=== PATIENT | male | born 1980 | race Caucasian/White ===

== ENCOUNTER 2018-07-29 02:52 | Emergency (ER) | payer OTHER ==
[~2018-07-29] VITALS: Ht 175.3 cm; Wt 86.2 kg
[~2018-07-29 02:52] MED LIST: FLEXERIL PO; IBUPROFEN 600600 M1 PO; LIDOCAINE VISC100 ML MM; PAXIL 20 MG TAB20 MG PO; PROBIOTIC1 EAC2 PO; TRAMADOL 50 MG50 MG PO; UNICOMPLEX M TA1 TA1 PO; ZOFRAN ODT4 MG PO; ZPAK PO
[2018-07-29] MEDS ORDERED: NAPROSYN500 MG PO (03:11)
[2018-07-29] MEDS ORDERED: FLEXERIL PO (03:12)
[2018-07-29] MEDS ORDERED: ACETAMINOPHEN-1 EAC1 PO (03:13)
[2018-07-29 03:42] LABS: ABSOLUTE NEUTROPHILS 8.2 thou/uL (1.4-8.2); BASOPHILS 0.5 % (0.0-2.0); EOSINOPHILS 8.6 % (0.0-3.0); HEMOGLOBIN 14.6 gm/dL (14.0-18.0); LYMPHOCYTES 22.2 % (24.0-44.0); MCH 32.8 pg (26.0-34.0); MCHC 34.9 g/dL (28.0-37.0); MCV 94.1 fL (80.0-100.0); MONOCYTES 8.9 % (1.0-8.0); PLATELET COUNT 185 thou/uL (150-400); POLYS 59.8 % (36.0-66.0); RBC 4.46 mil/uL (4.50-6.00); RDW 12.4 % (10.5-14.5); WBC 13.6 thou/uL (4.0-11.0)
[2018-07-29 03:47] LABS: CALCIUM 9.2 mg/dL (8.5-10.1); CREATININE 1.2 mg/dL (0.7-1.3); POTASSIUM 4.1 mmol/L (3.5-5.1)
[2018-07-29 03:53] LABS: ALBUMIN 3.8 g/dL (3.4-5.0); TOTAL BILIRUBIN 0.3 mg/dL (<0.1-1.0); TOTAL PROTEIN 7.3 g/dL (6.4-8.2)
[2018-07-29] MEDS ORDERED: KEFLEX500 M1 PO (04:20)
[2018-07-29 04:30] VITALS: BP 149/98
== END 2018-07-29 04:45 | disposition home or self-care (01) ==
LOC: ER 02:52
PROVIDERS: Emergency Medicine
DX: T81.4XXA Infection following a procedure, initial encounter (principal); F17.210 Nicotine dependence, cigarettes, uncomplicated; I10 Essential (primary) hypertension; F32.9 Major depressive disorder, single episode, unspecified; F41.9 Anxiety disorder, unspecified; F20.9 Schizophrenia, unspecified; M41.9 Scoliosis, unspecified

== ENCOUNTER 2021-01-26 21:38 | Emergency (ER) | payer OTHER ==
[~2021-01-26] VITALS: Ht 182.9 cm; Wt 131.5 kg
[~2021-01-26 21:38] MED LIST changes: +ACETAMINOPHEN-1 EAC1 PO; +KEFLEX500 M1 PO; +NAPROSYN500 MG PO
[2021-01-26] MEDS ORDERED: ADVIL200 M1 PO (22:00)
[2021-01-26] MEDS ORDERED: MEDROLDOSEPACK PO (23:32)
[2021-01-26] MEDS ORDERED: ULTRAM 50MG TAB50 MG PO (23:32)
[2021-01-27 00:07] VITALS: BP 168/100
== END 2021-01-26 23:45 | disposition home or self-care (01) ==
LOC: ER 21:38
DX: S86.911A Strain of unspecified muscle(s) and tendon(s) at lower leg level, right leg, initial encounter (principal); I10 Essential (primary) hypertension; F17.210 Nicotine dependence, cigarettes, uncomplicated; Z79.1 Long term (current) use of non-steroidal anti-inflammatories (NSAID); X58.XXXA Exposure to other specified factors, initial encounter; Y93.89 Activity, other specified; Y92.89 Other specified places as the place of occurrence of the external cause; Y99.0 Civilian activity done for income or pay

== ENCOUNTER 2021-02-10 23:23 | Inpatient (IN) | payer OTHER ==
[~2021-02-10] VITALS: Ht 182.9 cm; Wt 135.6 kg
[~2021-02-10 23:23] MED LIST changes: +ADVIL200 M1 PO; +MEDROLDOSEPACK PO; +ULTRAM 50MG TAB50 MG PO
[2021-02-10 23:29] VITALS: BP 201/116
[2021-02-10] MEDS ORDERED: EXCEDRIN CAPLE1 EACH PO (23:34)
[2021-02-11 00:51] LABS: ABSOLUTE NEUTROPHILS 12.1 thou/uL (1.4-8.2); BASOPHILS 0.5 % (0.0-2.0); EOSINOPHILS 1.9 % (0.0-3.0); HEMATOCRIT 42.2 % (42.0-52.0); HEMOGLOBIN 14.8 gm/dL (14.0-18.0); LYMPHOCYTES 18.6 % (24.0-44.0); MCH 33.5 pg (26.0-34.0); MCV 95.7 fL (80.0-100.0); MONOCYTES 9.7 % (1.0-8.0); PLATELET COUNT 151 thou/uL (150-400); POLYS 69.3 % (36.0-66.0); RBC 4.41 mil/uL (4.50-6.00); WBC 17.4 thou/uL (4.0-11.0)
[2021-02-11 00:53] LABS: ANION GAP 14 mmol/L (7-16); BUN 18 mg/dL (7-18); CALCIUM 8.6 mg/dL (8.5-10.1); CHLORIDE 105 mmol/L (98-107); CO2 24 mmol/L (21-32); CREATININE 1.3 mg/dL (0.7-1.3); GLUCOSE 119 mg/dL (74-106); POTASSIUM 3.7 mmol/L (3.5-5.1); SODIUM 143 mmol/L (136-145)
[2021-02-11 01:03] LABS: ALBUMIN 3.6 g/dL (3.4-5.0); SGOT 21 U/L (15-37); SGPT 28 U/L (16-63); TOTAL BILIRUBIN 0.3 mg/dL (0.2-1.0); TOTAL PROTEIN 7.5 g/dL (6.4-8.2); TROPONIN-I <0.06 ng/mL (<0.06)
[2021-02-11 04:06] VITALS: BP 174/105
[2021-02-11 04:52] VITALS: BP 160/103
[2021-02-11 07:43] VITALS: BP 167/95
--- NOTE | 2021-02-11 07:48 | NUR ---
ASSUMED CARE OF PT FROM ER AT 0430HRS. PT AOX4 AND LETS NEDS BE KNOWN. PT WAS ORIENTED TO THE UNIT AND HIS ROOM. PT WAS ABLE TO ANSWER ALL ADMISSION RELATED QUESTIONS AND SIGN OWN CONSENTS. ORDERS RECEIVED AND STARTED. ASSESSMENT CHARTED. REPORT GIVEN TO AM RN TO COMPLETE ADMISSION.
[2021-02-11 09:42] LABS: HEMATOCRIT 41.2 % (42.0-52.0); HEMOGLOBIN 14.6 gm/dL (14.0-18.0); MCH 33.7 pg (26.0-34.0); MCHC 35.4 g/dL (28.0-37.0); MCV 95.1 fL (80.0-100.0); RBC 4.34 mil/uL (4.50-6.00); RDW 12.9 % (10.5-14.5); WBC 12.3 thou/uL (4.0-11.0)
[2021-02-11 09:50] LABS: CALCIUM 8.8 mg/dL (8.5-10.1); CREATININE 1.1 mg/dL (0.7-1.3); POTASSIUM 3.8 mmol/L (3.5-5.1)
--- NOTE | 2021-02-11 12:41 | NUR ---
RD consulted. Pt with class III obesity, BMI 40.5. Admit with SOA, RLE pain. Visited during lunch, pt had just received lunch tray. Ordered Director Of Distance Learning salad but did have about 6/7 packets of dressing on his tray. Explained on heart healthy diet. Pt verbalized he had lost some wt, but then got injured and regained. Did not voice interest in education or materials but stated awareness he needs to try to improve his eating habits. Provided simple suggestions. Low nutrition risk
--- NOTE | 2021-02-11 13:03 | EKG ---
[address] [place] [address] ELECTROCARDIOGRAM REPORT Name: JONATHAN CHAUDHRY Room #: 453-P ADM IN M.R.#: [id number] Admission: 02/11/21 Attend Phys: Douglas Martini MD Discharge: Date of : 76 Report #: [id number] [facility] ED Test Date: 2021-02-10 Test Time: 23:34:12 Pat Name: JONATHAN CHAUDHRY Department: Room: 453 P Gender: M Cash Room Clerk: SRIDEVI : 1980 Requested By: Cam Gonzalez Order Number: [id number] MD: Ethan Woodall Measurements Intervals [place] Rate: 96 P: -10 [place]: 155 QRS: 26 QRSD: 89 T: -24 QT: 332 QTc: 420 Interpretive Statements Sinus rhythm Borderline T abnormalities, inferior leads Compared to ECG 05/11/2016 21:12:06 T-wave abnormality now present Electronically Signed On 02-11-2021 13:03:05 CDT by Ethan Woodall [email or web address] <ELECTRONICALLY SIGNED> By: Ethan Woodall MD, [facility] 02/11/21 1303 [id number] Ethan Woodall MD, FACC /EPI
[2021-02-11 16:38] VITALS: BP 180/11
--- NOTE | 2021-02-11 16:50 | NUR ---
Assumed pt care at 7am.Pt in bed for bedrest due to dvt.Assessment completed. vss but elevated bp noted.Dr Hilton here,order noted.Tylenol p[o given for pain but pt requested for stronger pain med.Hydrocodone oredered by Dr Hilton but pt prefered excedrin.Order noted.Family here and updates given.Will continue to monitor.
[2021-02-11 20:39] VITALS: BP 154/96
--- NOTE | 2021-02-12 04:55 | NUR ---
ASSUMED CARE OF PT SHIFT CHANGE. PT AOX4 AND LETS NEEDS BE KNOWN. PT REPORTED SOME HEADACHE AND PRNS WERE GIVEN. PT REPORTS SOME RLE PAIN BUT DENIES NAUSEA OR SOA. ASSESSMENT CHARTED. PT WAS ABLE TO GET COMFORTABEL AND SLEEP PART OF THE SHIFT. VSS AND NO S/S OF ACUTE DISTRESS. WILL CONTINUE TO MONITOR FOR CHANGES.
[2021-02-12 07:24] VITALS: BP 143/88
--- NOTE | 2021-02-12 11:58 | NUR ---
PT ADMITTED RELATED TO DVT AND PE. CM REVIEWED CHART AND SPOKE WITH CARE TEAM. CM MET WITH PT AND SPOUSE AT BEDSIDE THIS DAY. PT APPEARED TO BE A&O X4. CM ROLE INTRODUCED. PT INDICATED THAT HE RESIDES IN A HOUSE WITH HIS SPOUSE, HER 2 SONS, AND HIS DTR AND HER SPOUSE. HE INDICATED 6 STEPS TO ENTER AND 6 STEPS TO BEDROOM AND BATHROOMS INSIDE. 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 PT INDICATED THAT HE HAD BEEN INDEPEDNENET WITH [employer] MAINFRAME SOFTWARE DEVELOPER. PT INDICATED NO PCP AND PATIENT PAY. PT INTERESTED IN [facility] AND WILL NEED ASSISTANCE WITH MEDICATIONS UPON DC. PT WILL NEED TO DC ON ELIQUIS. PHYSICIAN ORDERING A MONTHS SUPPLY TO BE VOUCHERED. CM TO PROVIDE DISCOUNT CARD WELL. ANTICPATE DC HOME THIS DAY. AWAITING ORDERS AND SCRIPT TO VOUCHER.
[2021-02-12 12:08] VITALS: BP 140/94
[2021-02-12] MEDS ORDERED: ELIQUIS5 M1 PO (13:02)
[2021-02-12] MEDS ORDERED: NORVASC10 MG PO (13:02)
[2021-02-12] MEDS ORDERED: METOPROLOL TART25 MG PO (13:02)
[2021-02-12 14:27] VITALS: BP 140/94
--- NOTE | 2021-02-12 16:22 | NUR ---
Assumed pt care at 7am.Pt in bed resting and anxious about going home today. Assessment completed.vss.Bp reading this am was better.Am meds given with breakfast.Dr Hilton here,dc order noted.public events facilities rental manager assisted pt with getting medication from the outpt pharmacy.Dc summary compile and reviewed with pt and .Saline lock dc'd.Pt dc home in with at 1515.
== END 2021-02-12 15:15 | disposition home or self-care (01) | DRG 299 ==
LOC: ER 23:23 → EROBS 02-11 03:38 → 4W 02-11 04:30
PROVIDERS: Emergency Medicine; Hospitalist; Nurse Practitioner Family; ADMIT Hospitalist; ATTEND Hospitalist
DX: I82.4Z1 Acute embolism and thrombosis of unspecified deep veins of right distal lower extremity (principal); I26.99 Other pulmonary embolism without acute cor pulmonale; Z68.41 Body mass index [BMI] 40.0-44.9, adult; I10 Essential (primary) hypertension; F32.9 Major depressive disorder, single episode, unspecified; F41.9 Anxiety disorder, unspecified; F17.210 Nicotine dependence, cigarettes, uncomplicated; F20.9 Schizophrenia, unspecified; E66.9 Obesity, unspecified; M41.9 Scoliosis, unspecified; Q05.9 Spina bifida, unspecified; Z82.3 Family history of stroke
CPT/HCPCS: 10045

== ENCOUNTER 2021-03-05 01:41 | Emergency (ER) | payer OTHER ==
[~2021-03-05] VITALS: Ht 182.9 cm; Wt 136.1 kg
[~2021-03-05 01:41] MED LIST changes: +ELIQUIS5 M1 PO; +EXCEDRIN CAPLE1 EACH PO; +METOPROLOL TART25 MG PO; +NORVASC10 MG PO
[2021-03-05 02:29] LABS: ABSOLUTE NEUTROPHILS 7.6 thou/uL (1.4-8.2); BASOPHILS 0.5 % (0.0-2.0); EOSINOPHILS 1.9 % (0.0-3.0); HEMOGLOBIN 15.3 gm/dL (14.0-18.0); LYMPHOCYTES 32.9 % (24.0-44.0); MCH 32.3 pg (26.0-34.0); MCHC 33.9 g/dL (28.0-37.0); MCV 95.2 fL (80.0-100.0); PLATELET COUNT 160 thou/uL (150-400); POLYS 54.7 % (36.0-66.0); RBC 4.72 mil/uL (4.50-6.00); RDW 12.8 % (10.5-14.5); WBC 13.9 thou/uL (4.0-11.0)
[2021-03-05 02:33] LABS: ANION GAP 14 mmol/L (7-16); BUN 14 mg/dL (7-18); CALCIUM 8.6 mg/dL (8.5-10.1); CHLORIDE 101 mmol/L (98-107); CO2 25 mmol/L (21-32); CREATININE 1.2 mg/dL (0.7-1.3); GLUCOSE 139 mg/dL (74-106); POTASSIUM 3.5 mmol/L (3.5-5.1); SODIUM 140 mmol/L (136-145)
[2021-03-05 02:42] LABS: ALBUMIN 3.8 g/dL (3.4-5.0); SGOT 16 U/L (15-37); SGPT 31 U/L (30-65); TOTAL BILIRUBIN 0.3 mg/dL (0.2-1.0); TOTAL PROTEIN 7.4 g/dL (6.4-8.2); TROPONIN-I <0.06 ng/mL (<0.06)
[2021-03-05 02:45] LABS: APTT 27.6 Seconds (24.5-32.8); INR 0.95; PROTIME 10.4 Seconds (10.5-12.1)
[2021-03-05 05:40] VITALS: BP 126/83
--- NOTE | 2021-03-05 08:45 | EKG ---
[place] [address] [place] [address] ELECTROCARDIOGRAM REPORT Name: JONATHAN CHAUDHRY Room #: DEP MIKE Sauer#: [id number] Admission: 03/05/21 Attend Phys: Discharge: 03/05/21 Date of : 76 Report #: [id number] [facility] ED Test Date: 2021-03-05 Test Time: 01:54:36 Pat Name: JONATHAN CHAUDHRY Department: Room: Gender: M Train Operations Manager: ANNEMARIE LAGOS : 1980 Requested By: Richard Craft Order Number: [id number] MD: Ethan Woodall Measurements Intervals [place] Rate: 84 P: 11 ID: 162 QRS: 3 QRSD: 88 T: -3 QT: 348 QTc: 412 Interpretive Statements Sinus rhythm Inferior infarct, old Compared to ECG 02/10/2021 23:34:12 No significant change was found Electronically Signed On 03-05-2021 8:45:37 CDT by Ethan Woodall [email or web address] <ELECTRONICALLY SIGNED> By: Ethan Woodall MD, [facility] 03/05/21 0845 [id number] Ethan Woodall MD, FACC /EPI
== END 2021-03-05 05:40 | disposition home or self-care (01) ==
LOC: ER 01:41
PROVIDERS: Emergency Medicine
DX: R07.89 Other chest pain (principal); Z20.822 Contact with and (suspected) exposure to COVID-19; I10 Essential (primary) hypertension; F17.210 Nicotine dependence, cigarettes, uncomplicated; Z88.8 Allergy status to other drugs, medicaments and biological substances; Z79.899 Other long term (current) drug therapy

== ENCOUNTER → 2021-08-11 | Outpatient (CLI) | payer OTHER ==
[2021-08-11 10:23] LABS: CALCIUM 9.2 mg/dL (8.5-10.1); CREATININE 1.1 mg/dL (0.7-1.3); POTASSIUM 4.1 mmol/L (3.5-5.1)
== END ==
LOC: CAT 09:37
PROVIDERS: ATTEND Internal Medicine Pulmonary Disease
DX: I82.461 Acute embolism and thrombosis of right calf muscular vein (principal); K76.0 Fatty (change of) liver, not elsewhere classified; I27.82 Chronic pulmonary embolism; E66.01 Morbid (severe) obesity due to excess calories; Z68.42 Body mass index [BMI] 45.0-49.9, adult; Z72.0 Tobacco use